=== PATIENT | female | born 1990 | race Caucasian/White ===

== ENCOUNTER 2016-07-16 01:39 | Emergency (ER) | payer OTHER ==
[2016-07-16] MEDS ORDERED: 0.9 % SODIUM CHLORIDE 1,000 ML IV ONE (01:42)
[2016-07-16] MEDS ORDERED: ONDANSETRON HCL/PF 4 MG/ 2ML VIAL ONE (01:42)
[2016-07-16] MEDS ORDERED: ONDANSETRON HCL/PF 4 MG/ 2ML VIAL IVP ONE (02:03)
[2016-07-16] MEDS ORDERED: KETOROLAC TROMETHAMINE 30 MG/1ML VIAL IVP ONE (02:03)
[2016-07-16 02:21] LABS: MEAN CORPUSCULAR HEMOGLOBIN 31.4 pg (28.0-34.0)
[2016-07-16] MEDS ORDERED: 0.9 % SODIUM CHLORIDE 1,000 ML IV SCH (02:30)
[2016-07-16 02:31] LABS: eGFR (African) > 60; eGFR (Non-African) > 60
[2016-07-16 02:35] LABS: BASOPHILS % 2 % (0-2); EOSINOPHILS % 1 % (0-7); MONOCYTES % 4 % (0-11); SEGMENTED NEUTROPHILS % 48 % (39-79)
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
--- NOTE | 2016-07-16 04:55 | Diagnostic Imaging Report ---
[facility] [address] [facility].[address] [address] Report Submission Date: Jul 16, 2016 4:16:37 AM CDT Patient Study Name: ROSEANN PHILIPPE Date: Jul 16, 2016 3:40:28 AM CDT Modality Type: CR Gender: F Description: UPPER EXTREMITY : 88 Institution: [facility] Physician: EDEN PIMENTEL ER Right wrist, 3 views. History: Hand pain. Findings: There is a fracture of the 5th metacarpal with anterior displacement and overlapping of the fracture fragments . There is also a fracture of the 4th metacarpal with mild dorsal angulation also present. There is dorsal hand soft tissue swelling. Remaining osseous structures of the wrist are intact . Impression: 1. 4th and 5th metacarpal fractures Electronically signed on Jul 16, 2016 4:16:37 AM CDT by: Pete CHEN
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
[2016-07-16 05:42] LABS: APPEARANCE,URINE CLEAR (CLEAR); COLOR,URINE YELLOW (YELLOW); OCCULT BLOOD,URINE 2+ (NEGATIVE); UROBILINOGEN URINE 0.2 Eu (0.2-1.0)
[2016-07-16 05:43] LABS: AMPHETAMINE NEGATIVE ng/mL (<1000); BARBITURATES NEGATIVE ng/mL (<300); COCAINE NEGATIVE ng/mL (<150); METHAMPHETAMINE NEGATIVE ng/mL (<1000); METHYLENEDIOXYMETHAMPHETAMINE NEGATIVE ng/mL (<500)
[2016-07-16 05:44] LABS: CANNABINOIDS NEGATIVE ng/mL (<50)
[2016-07-16 05:59] VITALS: BP 119/68
== END 2016-07-16 05:40 | disposition short-term general hospital (02) ==
LOC: ED 01:39
DX: S62.91XA Unspecified fracture of right hand, initial encounter for closed fracture (principal)
CPT/HCPCS: 70450; 71250; 72125; 73080; 73110; 73130; 73562; 74176; 80053; 80320; 80377; 81002; 81025; 85025; J1885; J2405; J7030; L3908; 96361; 96374; 96375; 99283; 99284; G0480; G0481; S1016

== ENCOUNTER 2016-08-01 19:26 | Emergency (ER) | payer OTHER ==
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
[2016-08-01 21:48] VITALS: BP 101/72
--- NOTE | 2016-08-02 06:08 | Diagnostic Imaging Report ---
Report Submission Date: Aug 01, 2016 8:06:15 PM CDT Patient ~ Study Name: ROSEANN PHILIPPE ~ Date: Aug 01, 2016 7:46:14 PM CDT ~ Modality Type: CR Gender: F ~ Description: UPPER EXTREMITY : 88 ~ Institution: [facility] Physician: BETSY MARSHALL ~ ~ ~ ~ HISTORY: 25-year-old female with right hand pain and swelling, recent fracture of the fifth metacarpal bone status post fixation surgery. COMPARISON: Radiographs dated 07/16/2016 TECHNIQUE: Three views of the right hand were performed. FINDINGS: There are interval postoperative changes of plate and screw fixation of the fifth metacarpal bone. ~Mildly displaced oblique versus spiral fracture of the right fourth metacarpal proximal shaft re-identified without fixation. No other fractures are identified about the right hand. IMPRESSION: Fractures of the right fourth and fifth metacarpal shafts with interval postoperative changes of plate and screw fixation of the fifth metacarpal bone. ~No new fractures or evidence of hardware complication. ~ Electronically signed on Aug 01, 2016 8:06:15 PM CDT by: Víctor CHEN
== END 2016-08-01 20:19 ==
LOC: ED 19:26
DX: S62.306D Unspecified fracture of fifth metacarpal bone, right hand, subsequent encounter for fracture with routine healing (principal); X58.XXXD Exposure to other specified factors, subsequent encounter; Y93.9 Activity, unspecified; Y99.9 Unspecified external cause status
CPT/HCPCS: 73130; 99283

== ENCOUNTER 2017-05-15 20:11 | Observation (INO) | payer OTHER ==
[2017-05-15] MEDS ORDERED: 0.9 % SODIUM CHLORIDE 1,000 ML IV ONE ×2 (20:29→20:30)
[2017-05-15 21:00] LABS: BASOPHILS % 0.6 (0.0-1.5); EOSINOPHILS % 3.1 % (0.0-6.8); MEAN CORPUSCULAR HEMOGLOBIN 31.4 pg (28.0-34.0); MONOCYTES % 5.2 % (0.0-11.0); NEUTROPHILS # 4.5 # k/uL (1.4-7.7)
[2017-05-15 21:03] LABS: eGFR (African) > 60; eGFR (Non-African) > 60
[2017-05-15] MEDS ORDERED: ONDANSETRON HCL/PF 4 MG/ 2ML VIAL IVP ONE (21:40)
[2017-05-15] MEDS ORDERED: ONDANSETRON HCL/PF 4 MG/ 2ML VIAL ONE (21:41)
[2017-05-15] MEDS: 0.9 % SODIUM CHLORIDE 1,000 ML IV SCH (21:55)
--- NOTE | 2017-05-15 21:57 | ED Physician Documentation ---
Abdominal Pain - HISTORIAN Historian: patient - HPI Stated Complaint: tylenol OD/toothache Chief Complaint: Dental Pain Additonal Information: pt has several bad teeth she has been taking 9-12 gm tylenol for past 3 days for dental pain tooth no 1-today she took sig less and has has had gi upset and emesis. her acetaminophen level is not elevated but will monitor her closely next several hrs. she has chronic gi upset w/nausea and diarrhea w/most foods. she is not under wt at 135# ht= 5'8". poison control has been consulted, and protocol will be followed Onset: days ago (dental pain and tylenol admis std fri last-3d ago) Duration: other (dental pain has subsided for now and pt requests diet) Context: denies: out of country travel Severity: moderate Quality: other (potential over dose is consideration) Associated Symptoms: nausea, other (ulq abd pain but some in urq and hepatgic punch is pos) Relieved by: remaining still - ROS CONST: other (as described above) GI/: other (chronic gi condition) CVS/RESP: none EYES/ENT: none MS/SKIN/LYMPH: none NEURO/PSYCH: none - SOCIAL HX Smoking History: cigarettes Alcohol Use: none Drug Use: marijuana (as appetite stimulant) - FAMILY HX Family History: no significant history - PAST HX Past History: other (chronic gastritis and gi problems-etiology uncertain-eval std few yrsago but pt bacame and eval held.) Other History: other (gerd and gastritis plus multi dental caries and fx teeth) Surgeries/Procedures: cholecystectomy Home Medications: Ambulatory Orders Medication Instructions Recorded NK [NK] 07/06/16 Allergies/Adverse Reactions: Allergies Allergy/AdvReac Type Severity Reaction Status Date / Time ciprofloxacin [From Cipro] Allergy Unknown Rash Verified 05/16/17 00:24 ciprofloxacin HCl Allergy Unknown Rash Verified 05/16/17 00:24 [From Cipro] doxycycline Allergy Unknown Eye Itching Verified 05/16/17 00:24 erythromycin base Allergy Unknown Unknown Verified 05/16/17 00:24 [From E-Mycin] NSAIDS (Non-Steroidal Allergy Unknown Nonspecific Verified 05/16/17 00:24 Anti-Inflamma aspirin Allergy Anaphylaxis Verified 05/16/17 00:24 ibuprofen Allergy Anaphylaxis Verified 05/16/17 00:24 Penicillins Allergy Rash Verified 05/16/17 00:24 Sulfa (Sulfonamide Allergy Rash Verified 05/16/17 00:24 Antibiotics) [Sulfa(Sulfonamide Antibiotics)] azithromycin [From Zithromax] AdvReac Unknown Diarrhea Verified 05/16/17 00:24 famotidine [From Pepcid] AdvReac Unknown Intolerance Verified 05/16/17 00:24 omeprazole [From Prilosec] AdvReac Unknown Intolerance Verified 05/16/17 00:24 omeprazole magnesium AdvReac Unknown Intolerance Verified 05/16/17 00:24 [From Prilosec] - VITAL SIGNS Vital Signs: Vital Signs Temp Pulse Resp BP Pulse Ox 97.1 F L 60 18 108/70 94 05/16/17 06:00 05/16/17 06:00 05/16/17 06:00 05/16/17 06:00 05/16/17 06:00 - REVIEWED ASSESSMENTS Nursing Assessment Reviewed: Yes Vitals Reviewed: Yes ED Results Lab/Radiology - Lab Results Lab Results: Lab Results 05/15/17 05/15/17 05/15/17 20:46 20:46 20:46 WBC 6.80 K/ul K/ul (4.00-12.00) RBC 4.27 M/ul M/ul (3.90-5.20) Hgb 13.4 g/dL g/dL (12.0-16.0) Hct 39.7 % % (34.5-46.5) MCV 93.0 fl fl (80.0-100.0) MCH 31.4 pg pg (28.0-34.0) MCHC 33.7 g/dL g/dL (30.0-36.0) RDW 12.5 % % (11.3-14.3) Plt Count 167 K/mm3 K/mm3 (130-400) Neut % (Auto) 65.3 % % (39.0-79.0) Lymph % (Auto) 24.7 % % (16.0-50.0) [place] % (Auto) 5.2 % % (0.0-11.0) Eos % (Auto) 3.1 % % (0.0-6.8) Baso % (Auto) 0.6 (0.0-1.5) Neut # (Auto) 4.5 # k/uL # k/uL (1.4-7.7) Lymph # (Auto) 1.7 # k/uL # k/uL (0.6-4.0) [place] # (Auto) 0.4 # k/uL # k/uL (0.0-0.9) Eos # (Auto) 0.2 # k/uL # k/uL (0.0-0.6) Baso # (Auto) 0.0 # k/uL # k/uL (0.0-0.5) Reactive Lymphs % 1.1 % % (0.0-5.0) Reactive Lymphs # 0.1 # k/uL # k/uL (0.0-0.8) Sodium 141 mmol/L mmol/L (136-145) Potassium 3.5 mmol/L mmol/L (3.5-5.1) Chloride 105 mmol/L mmol/L (98-107) Carbon Dioxide 24 mmol/L mmol/L (22-30) BUN 9 mg/dL mg/dL (7-17) Creatinine 0.70 mg/dL mg/dL (0.52-1.04) Estimated Creat Clear 137 Est GFR ( Amer) > 60 (60 - ) Est GFR (Non-Af Amer) > 60 (60 - ) Glucose 90 mg/dL mg/dL (74-106) Calcium 9.1 mg/dL mg/dL (8.4-10.2) Total Bilirubin 0.4 mg/dL mg/dL (0.2-1.3) AST 18 U/L U/L (15-46) ALT 24 U/L U/L (13-69) Alkaline Phosphatase 50 U/L U/L (38-126) Total Protein 7.1 g/dL g/dL (6.3-8.2) Albumin 3.9 g/dL g/dL (3.5-5.0) Urine Color Urine Appearance Urine pH Ur Specific Marshall Urine Protein Urine Ketones Urine Occult Blood Urine Nitrite Urine Bilirubin Urine Urobilinogen Ur Leukocyte Esterase Urine Glucose Acetaminophen < 10.0 ug/mL L ug/mL (10-30) 05/15/17 20:45 WBC RBC Hgb Hct MCV MCH MCHC RDW Plt Count Neut % (Auto) Lymph % (Auto) [place] % (Auto) Eos % (Auto) Baso % (Auto) Neut # (Auto) Lymph # (Auto) [place] # (Auto) Eos # (Auto) Baso # (Auto) Reactive Lymphs % Reactive Lymphs # Sodium Potassium Chloride Carbon Dioxide BUN Creatinine Estimated Creat Clear Est GFR ( Amer) Est GFR (Non-Af Amer) Glucose Calcium Total Bilirubin AST ALT Alkaline Phosphatase Total Protein Albumin Urine Color Yellow (YELLOW) Urine Appearance Clear (CLEAR) Urine pH 6.5 (5.0 - 8.0) Ur Specific Marshall 1.020 (1.010-1.030) Urine Protein Negative mg/dL mg/dL (NEGATIVE) Urine Ketones 1+ mg/dL H mg/dL (NEGATIVE) Urine Occult Blood Trace-intact H (NEGATIVE) Urine Nitrite Negative (NEGATIVE) Urine Bilirubin Negative (NEGATIVE) Urine Urobilinogen 0.2 Eu Eu (0.2-1.0) Ur Leukocyte Esterase Negative (NEGATIVE) Urine Glucose Negative mg/dL mg/dL (NEGATIVE) Acetaminophen - Orders Orders: ED Orders Category Date Time Status Continuous EKG monitoring Q2 Care 05/15/17 20:[address] IV Lock 1T Care 05/15/17 20:41 Active ACETAMINOPHEN LEVEL Routine Lab 05/16/17 02:00 Completed ACETAMINOPHEN LEVEL Stat Lab 05/15/17 20:46 Completed CBC/PLATELET/DIFF Routine Lab 05/15/17 20:46 Completed CMP Routine Lab 05/15/17 20:46 Completed UA MACRO DIP ONLY Routine Lab 05/15/17 20:45 Completed 0.9 % Sodium Chloride [Normal Saline] 1,000 ml Med 05/15/17 20:29 Discontinued IV .STK-MED 0.9 % Sodium Chloride [Normal Saline] 1,000 ml Med 05/15/17 20:30 Discontinued IV Q1H 0.9 % Sodium Chloride [Normal Saline] 1,000 ml Med 05/15/17 22:00 Ordered IV Q8H Ondansetron HCl/Pf [Zofran 4 mg/2 ml] Med 05/15/17 21:41 Discontinued 4 mg .ROUTE .STK-MED ONE Ondansetron HCl/Pf [Zofran 4 mg/2 ml] Med 05/15/17 21:40 Discontinued 4 mg IVP NOW ONE Abdominal Pain Physical Exam - Physical Exam General Appearance: mild distress EENT: eye inspection normal, other. No: pharyngeal erythema NECK: normal inspection. No: carotid bruit RESPIRATORY: no resp distress, chest non-tender, breath sounds normal CVS: reg rate & rhythm, heart sounds normal ABDOMEN: soft, tenderness (ulq and urq-no guarding) SKIN: warm/dry, normal color. No: cyanosis, diaphoresis, jaundice NEURO: oriented X3, motor nml, sensation nml, mood/affect nml, cognition normal Vital Signs: Vital Signs Temp Pulse Resp BP Pulse Ox 97.1 F L 60 18 108/70 94 05/16/17 06:00 05/16/17 06:00 05/16/17 06:00 05/16/17 06:00 05/16/17 06:00 Discharge Clincal Impression: Pain, dental, possible acetaminophen toxicity Disposition: ADMITTED INPATIENT Decision to Admit: [id number] Decision Time: 22:30
[2017-05-15 23:27] VITALS: BMI 21.7
[2017-05-16] MEDS ORDERED: traMADol HCL 50 MG TABLET PO PRN (01:59)
[2017-05-16 02:21] LABS: eGFR (African) > 60; eGFR (Non-African) > 60
[2017-05-16] MEDS: 0.9 % SODIUM CHLORIDE 1,000 ML IV SCH ×2 (05:45→07:55)
[2017-05-16 05:57] LABS: APPEARANCE,URINE CLEAR (CLEAR); COLOR,URINE YELLOW (YELLOW); OCCULT BLOOD,URINE TRACE-INTACT (NEGATIVE); PH URINE 6.5 (5.0 - 8.0); UROBILINOGEN URINE 0.2 Eu (0.2-1.0)
[2017-05-16 08:09] LABS: eGFR (African) > 60; eGFR (Non-African) > 60
--- NOTE | 2017-05-16 08:33 | Discharge Summary ---
Discharge Summary - Discharge Sumary History of Present Illness: Pt is a 26 yo female admitted through the ER after stating that she had been taking excessive amounts of Tylenol, up to 12 gms/day, for a tooth ache. Pt was admitted for serial Acetaminophen levels, which remained low. Pt also did not have any elevation in her LFT's, so that Acetaminophen toxicity was ruled out. Pt states now that she vomited after taking the Tylenol, so that it may not have entered her system. Pt was counseled on the dangers of taking more than 3 or 4 gms Tylenol/24 hrs. Pt was d/c'd with rx for Keflex and Tramadol for toothache. Pt states that she is not allergic to Keflex, even though this was mistakenly reported in one of her records. She has taken Keflex in the past. Condition at Discharge: Stable Home Medications: Ambulatory Orders Medication Instructions Recorded NK [NK] 07/06/16 Consultations this Visit: None Procedures this Visit: None Allergies/Adverse Reactions: Allergies Allergy/AdvReac Type Severity Reaction Status Date / Time ciprofloxacin [From Cipro] Allergy Unknown Rash Verified 05/16/17 00:24 ciprofloxacin HCl Allergy Unknown Rash Verified 05/16/17 00:24 [From Cipro] doxycycline Allergy Unknown Eye Itching Verified 05/16/17 00:24 erythromycin base Allergy Unknown Unknown Verified 05/16/17 00:24 [From E-Mycin] NSAIDS (Non-Steroidal Allergy Unknown Nonspecific Verified 05/16/17 00:24 Anti-Inflamma aspirin Allergy Anaphylaxis Verified 05/16/17 00:24 ibuprofen Allergy Anaphylaxis Verified 05/16/17 00:24 Penicillins Allergy Rash Verified 05/16/17 00:24 Sulfa (Sulfonamide Allergy Rash Verified 05/16/17 00:24 Antibiotics) [Sulfa(Sulfonamide Antibiotics)] azithromycin [From Zithromax] AdvReac Unknown Diarrhea Verified 05/16/17 00:24 famotidine [From Pepcid] AdvReac Unknown Intolerance Verified 05/16/17 00:24 omeprazole [From Prilosec] AdvReac Unknown Intolerance Verified 05/16/17 00:24 omeprazole magnesium AdvReac Unknown Intolerance Verified 05/16/17 00:24 [From Prilosec]
[2017-05-16 09:26] VITALS: BP 97/47
== END 2017-05-16 10:15 | disposition home or self-care (01) ==
LOC: ED 20:11 → SOUTH 22:37
PROVIDERS: ADMIT Family Medicine; ATTEND Family Medicine
DX: K08.89 Other specified disorders of teeth and supporting structures (principal)
CPT/HCPCS: 36415; 80053; 81002; 85025; 96365; 96375; 99283; G0378; J2405; J7030; 99218; S1016

== ENCOUNTER 2017-11-03 18:20 | Emergency (ER) | payer OTHER ==
--- NOTE | 2017-11-03 18:39 | ED Physician Documentation ---
General Adult - HISTORIAN Historian: patient - HPI Stated Complaint: knot in armpit Chief Complaint: General Adult Additional Information: Alger bump right axilla for 4 days. Painful. No treatment attempted. Temp 100.2 last evening. No other associated signs. Most recent right hand surgery a month ago. Completed antibiotics (Augmentin, she thinks) 3 weeks ago. - ROS CONST: denies: fever - PAST HX Past History: other (fracture and suergeries right hand) Allergies/Adverse Reactions: Allergies Allergy/AdvReac Type Severity Reaction Status Date / Time ciprofloxacin [From Cipro] Allergy Unknown Rash Verified 05/16/17 00:24 ciprofloxacin HCl Allergy Unknown Rash Verified 05/16/17 00:24 [From Cipro] doxycycline Allergy Unknown Eye Itching Verified 05/16/17 00:24 erythromycin base Allergy Unknown Unknown Verified 05/16/17 00:24 [From E-Mycin] NSAIDS (Non-Steroidal Allergy Unknown Nonspecific Verified 05/16/17 00:24 Anti-Inflamma aspirin Allergy Anaphylaxis Verified 05/16/17 00:24 ibuprofen Allergy Anaphylaxis Verified 05/16/17 00:24 Penicillins Allergy Rash Verified 05/16/17 00:24 Sulfa (Sulfonamide Allergy Rash Verified 05/16/17 00:24 Antibiotics) [Sulfa(Sulfonamide Antibiotics)] azithromycin [From Zithromax] AdvReac Unknown Diarrhea Verified 05/16/17 00:24 famotidine [From Pepcid] AdvReac Unknown Intolerance Verified 05/16/17 00:24 omeprazole [From Prilosec] AdvReac Unknown Intolerance Verified 05/16/17 00:24 omeprazole magnesium AdvReac Unknown Intolerance Verified 05/16/17 00:24 [From Prilosec] Home Medications: Ambulatory Orders Medication Instructions Recorded NK [NK] 07/06/16 - SOCIAL HX Smoking History: non-smoker - FAMILY HX Family History: No - VITAL SIGNS Vital Signs: Vital Signs Temp Pulse Resp BP Pulse Ox 97/47 05/16/17 09:26 - REVIEWED ASSESSMENTS Nursing Assessment Reviewed: Yes Vitals Reviewed: Yes General Adult Physical Exam - PHYSICAL EXAM GENERAL APPEARANCE: mild distress EENT: eye inspection normal, ENT inspection normal NECK: normal inspection, supple RESPIRATORY: no resp distress BACK: normal inspection SKIN: warm/dry, normal color, other (1 cm diamete pink papule central right axilla. Tender to touch.) EXTREMITIES: normal range of motion (gait and stance) NEURO: CN's nml as tested, motor nml, sensation nml Discharge Clincal Impression: Folliculitis Referrals: Yusuf Springer MD [Primary Care Provider] - 2 Days Condition: Good Disposition: 01 HOME, SELF-CARE Decision to Admit: NO Decision Time: 18:40
[2017-11-03 18:50] VITALS: BP 104/62
== END 2017-11-03 18:48 | disposition home or self-care (01) ==
LOC: ED 18:20
DX: L66.4 Folliculitis ulerythematosa reticulata (principal)
CPT/HCPCS: 99282

== ENCOUNTER 2017-11-20 21:27 | Emergency (ER) | payer OTHER ==
[2017-11-20] MEDS ORDERED: MAG HYDROX/ALUMINUM HYD/SIMETH 30 ML, Lidocaine 2%Visc 15ml 20 MG, PHENobarb/HYOSCY/ATR... PO ONE ×3 (22:06)
[2017-11-20] MEDS ORDERED: 0.9 % SODIUM CHLORIDE 1,000 ML IV ONE (22:07)
[2017-11-20] MEDS ORDERED: FAMOTIDINE/PF 20 MG/2 ML VIAL IVP ONE (22:08)
--- NOTE | 2017-11-20 22:12 | ED Physician Documentation ---
General Adult - HISTORIAN Historian: patient - HPI Stated Complaint: "I have gastritis". Chief Complaint: General Adult Onset: days ago (7) Timing: still present Severity: moderate Further Comments: yes (Pt is a 27 yo female with abd pain and diarrhea that has been going on for a week. Pt states pain occurs whenever she eats. No blood with bm. Pt has had lightheadedness. No fever. Pt has had episodes of heartburn in the past.) - ROS CONST: no problems EYES/ENT: none CVS/RESP: none GI/: abdominal pain, nausea, diarrhea - PAST HX Past History: other (cholecystectomy) Surgeries/Procedures: cholecystectomy Allergies/Adverse Reactions: Allergies Allergy/AdvReac Type Severity Reaction Status Date / Time ciprofloxacin [From Cipro] Allergy Unknown Rash Verified 11/03/17 18:44 ciprofloxacin HCl Allergy Unknown Rash Verified 11/03/17 18:44 [From Cipro] doxycycline Allergy Unknown Eye Itching Verified 11/03/17 18:44 erythromycin base Allergy Unknown Unknown Verified 11/03/17 18:44 [From E-Mycin] NSAIDS (Non-Steroidal Allergy Unknown Nonspecific Verified 11/03/17 18:44 Anti-Inflamma aspirin Allergy Anaphylaxis Verified 11/03/17 18:44 ibuprofen Allergy Anaphylaxis Verified 11/03/17 18:44 Penicillins Allergy Rash Verified 11/03/17 18:44 Sulfa (Sulfonamide Allergy Rash Verified 11/03/17 18:44 Antibiotics) [Sulfa(Sulfonamide Antibiotics)] azithromycin [From Zithromax] AdvReac Unknown Diarrhea Verified 11/03/17 18:44 famotidine [From Pepcid] AdvReac Unknown Intolerance Verified 11/03/17 18:44 omeprazole [From Prilosec] AdvReac Unknown Intolerance Verified 11/03/17 18:44 omeprazole magnesium AdvReac Unknown Intolerance Verified 11/03/17 18:44 [From Prilosec] Home Medications: Ambulatory Orders Medication Instructions Recorded NK [NK] 11/20/17 - SOCIAL HX Smoking History: non-smoker - FAMILY HX Family History: Yes - VITAL SIGNS Vital Signs: Vital Signs Temp Pulse Resp BP Pulse Ox 99.1 F 16 136/82 99 11/20/17 21:42 11/20/17 21:42 11/20/17 21:42 11/20/17 21:42 - REVIEWED ASSESSMENTS Nursing Assessment Reviewed: Yes Vitals Reviewed: Yes Progress - Progress Progress: abd x-ray: Increased small bowel gas but without small bowel distention. This is a nonspecific finding. NS 1 L IVF Zofran 4 mg IV Famotidine 20 mg IV GI cocktail mild improvement H. Pylori - pending. May try OTC pepcid/zantac or Prilosec. f/u pcp ED Results Lab/Radiology - Orders Orders: ED Orders Category Date Time Status Place IV Lock 1T Care 11/20/17 22:07 Active CBC/PLATELET/DIFF Routine Lab 11/20/17 Ordered CMP Routine Lab 11/20/17 22:09 Ordered LIPASE Stat Lab 11/20/17 22:09 Ordered URINALYSIS Routine Lab 11/20/17 Ordered URINE HCG Stat Lab 11/20/17 Ordered 0.9 % Sodium Chloride [Normal Saline] 1,000 ml Med 11/20/17 22:07 Active IV Q1H Famotidine/Pf [Pepcid] Med 11/20/17 22:08 Discontinued 20 mg IVP NOW ONE Mag Hydrox/Aluminum Hyd/Simeth [Mylanta] 30 ml Med 11/20/17 22:06 Discontinued Lidocaine 2%Visc 15ml [Xylocaine] 20 mg PHENobarb/HYOSCY/ATROPINE/SCOP [] 10 ml PO NOW General Adult Physical Exam - PHYSICAL EXAM GENERAL APPEARANCE: mild distress EENT: pharynx normal NECK: normal inspection, supple RESPIRATORY: no resp distress, chest non-tender, breath sounds normal CVS: reg rate & rhythm, heart sounds normal ABDOMEN: soft, tenderness (epigastric), decreased BS BACK: normal inspection, no CVA tenderness SKIN: warm/dry, normal color EXTREMITIES: non-tender, normal range of motion, no evidence of injury NEURO: oriented X3, motor nml, sensation nml Discharge Clincal Impression: abd pain, ? peptic ulcer dz, ? GERD Referrals: Yusuf Springer MD [Primary Care Provider] - Condition: Stable Disposition: 01 HOME, SELF-CARE Decision to Admit: NO Decision Time: 00:18
[2017-11-20] MEDS ORDERED: MAG HYDROX/ALUMINUM HYD/SIMETH 30 ML UDC PO ONE (22:24)
[2017-11-20] MEDS ORDERED: Lidocaine 2%Visc 15ml 20 MG/ML UDC ONE (22:24)
[2017-11-20 22:31] LABS: BASOPHILS % 0.6 (0.0-1.5); EOSINOPHILS % 3.6 % (0.0-6.8); MEAN CORPUSCULAR HEMOGLOBIN 31.9 pg (28.0-34.0); MEAN CORPUSCULAR VOLUME 96.1 fl (80.0-100.0); NEUTROPHILS # 3.6 # k/uL (1.4-7.7)
[2017-11-20 22:45] LABS: eGFR (African) > 60; eGFR (Non-African) > 60
[2017-11-21 01:23] VITALS: BP 116/80
[2017-11-21 06:19] LABS: APPEARANCE,URINE CLEAR (CLEAR); COLOR,URINE YELLOW (YELLOW); OCCULT BLOOD,URINE NEGATIVE (NEGATIVE); PH URINE 5.5 (5.0 - 8.0); UROBILINOGEN URINE 0.2 Eu (0.2-1.0)
--- NOTE | 2017-11-21 06:38 | Diagnostic Imaging Report ---
ANDREE HAYES [facility] [address] [facility] [address] [address] Report Submission Date: Nov 20, 2017 11:35:46 PM CDT Patient Study Name: ROSEANN RIZO Date: Nov 20, 2017 11:13:57 PM CDT Modality Type: DX Gender: F Description: ABDOMEN : 88 Institution: [facility] Physician: ANDREE HAYES One view abdomen Clinical history: Epigastric abdominal pain. Findings: Examination abdomen single AP view demonstrates gas and stool throughout the colon. There is gas in some nondistended small-bowel loops. Surgical clips are seen the right upper quadrant from prior cholecystectomy. Visualized bony structures are intact. Impression: 1. Postoperative abdomen. 2. Increased small bowel gas but without small bowel distention. This is a nonspecific finding. Electronically signed on Nov 20, 2017 11:35:46 PM CDT by: Angel CHEN
== END 2017-11-21 00:25 | disposition home or self-care (01) ==
LOC: ED 21:27
DX: R10.9 Unspecified abdominal pain (principal)
CPT/HCPCS: 74018; 80053; 81002; 81025; 83690; 85025; 86677; A9270; J7030; 96365; 96375; 99284; S0028; S1016

== ENCOUNTER 2018-11-12 16:32 | Emergency (ER) | payer OTHER ==
[2018-11-12] MEDS ORDERED: CEPHALEXIN 250 MG CAPSULE PO ONE (16:46)
--- NOTE | 2018-11-12 16:49 | ED Physician Documentation ---
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 She states that her tooth on the right side; lower bottom; in the back started to hurt 2 days ago. Onset: days ago Context: Fractured Tooth, Dental Caries Associated Symptoms: denies: fever, chills, sore throat Worsened By: cold. denies: heat - ROS CONST: no problems CVS/RESP: none GI/: denies: nausea, vomiting MS/SKIN/LYMPH: denies: rash NEURO/PSYCH: none - PAST HX Past History: gum disease Other History: none Immunizations: UTD Allergies/Adverse Reactions: Allergies Allergy/AdvReac Type Severity Reaction Status Date / Time ciprofloxacin [From Cipro] Allergy Unknown Rash Verified 11/21/17 00:28 ciprofloxacin HCl Allergy Unknown Rash Verified 11/21/17 00:28 [From Cipro] doxycycline Allergy Unknown Eye Itching Verified 11/21/17 00:28 erythromycin base Allergy Unknown Unknown Verified 11/21/17 00:28 [From E-Mycin] NSAIDS (Non-Steroidal Allergy Unknown Nonspecific Verified 11/21/17 00:28 Anti-Inflamma aspirin Allergy Anaphylaxis Verified 11/21/17 00:28 ibuprofen Allergy Anaphylaxis Verified 11/21/17 00:28 Penicillins Allergy Rash Verified 11/21/17 00:28 Sulfa (Sulfonamide Allergy Rash Verified 11/21/17 00:28 Antibiotics) [Sulfa(Sulfonamide Antibiotics)] azithromycin [From Zithromax] AdvReac Unknown Diarrhea Verified 11/21/17 00:28 famotidine [From Pepcid] AdvReac Unknown Intolerance Verified 11/21/17 00:28 omeprazole [From Prilosec] AdvReac Unknown Intolerance Verified 11/21/17 00:28 omeprazole magnesium AdvReac Unknown Intolerance Verified 11/21/17 00:28 [From Prilosec] Home Medications: Ambulatory Orders Medication Instructions Recorded Cephalexin [Keflex] 500 mg PO Q6H #40 capsule 11/12/18 - SOCIAL HX Smoking History: greater than 1 pack/day Alcohol Use: rarely Drug Use: methamphetamines - FAMILY HX Family History: No - VITAL SIGNS Vital Signs: Vital Signs Temp Pulse Resp BP Pulse Ox 116/80 11/21/17 00:00 - REVIEWED ASSESSMENTS Nursing Assessment Reviewed: Yes Vitals Reviewed: Yes ED Results Lab/Radiology - Orders Orders: ED Orders Category Date Time Status Cephalexin [Keflex] Med 11/12/18 16:46 Discontinued 1,000 mg PO NOW ONE Dental Pain Physical Exam - EXAM General Appearance: no acute distress, alert Head/Neck: head nml inspection, trachea midline, no lymphadenopathy Eyes: eyes nml inspection, PERRL Mouth/Throat: lips nml, gums nml, pharynx nml, voice nml, membranes nml Ear/Nose: nml inspection Respiratory: breath sounds nml CVS: heart sounds nml Abdomen: normal bowel sounds Extremities: non-tender Skin: warm/dry Neuro/Psych: none Discharge Clincal Impression: Pain due to dental caries Prescriptions: Cephalexin [Keflex] 500 mg PO Q6H #40 capsule Referrals: Yusuf Springer MD [Primary Care Provider] - 2 Days Additional Instructions: Take Cephalexin 500mg by mouth every 6 hours x 10 days Warm salt water gargles Patient has Tramadol at home Use Tylenol as needed for pain, with Anbesol, Orajel See dentist AVEL Condition: Good Disposition: 01 HOME, SELF-CARE Decision to Admit: NO Decision Time: 20:20
[2018-11-12 16:54] VITALS: BP 120/77
== END 2018-11-12 16:54 | disposition home or self-care (01) ==
LOC: ED 16:32
DX: K02.9 Dental caries, unspecified (principal)
CPT/HCPCS: 99283

== ENCOUNTER 2019-02-27 11:10 | Emergency (ER) | payer OTHER ==
--- NOTE | 2019-02-27 11:19 | ED Physician Documentation ---
Chest Pain - HISTORIAN Historian: patient - HPI Stated Complaint: chest pain x 3 days Chief Complaint: Chest Pain Onset: days ago (3) Timing: sudden onset Duration: constant Last known Well Date: 02/23/19 Last Known Well Time: 09:00 Context: activity Severity: moderate Quality: sharp, stabbing Chest Pain Radiation: no radiation Chest Pain Signs/Symptoms: other (she states she "passed out" due to sharp pain (vague on when last night or this am) ). denies: nausea, vomiting Worsened By: movement, change in position Relieved By: nothing Further Comments: yes (She states she has had this issue in the past - her story is hard to follow she is on one topic then moves to another. She starts with saying she had this issue before her last where she got a low pulse rate and "passed out" she states she is fearful this is "happening again" . She then moves to the fact her son who is six has heart issues. Next discussion she reports this all really started about one week ago when she had some weakness and "passed out" She went to the "clinic" where she states she was "hooked up to that heart machine" and she was told she was "ok" she states the chest pain increased to severe in last day or "so" and she has pain (screaming when asked) "under my left tit" she denies any injury. Denies any shortness of air. She has not had any OTC meds for the pain. Denies any daily meds) - ROS CONST: none MS/LYMPH: none GI/: none EYES/ENT: none SKIN/ENDO: none NEURO/PSYCH: none - PAST HX SD risk factors: hypertension (she was not given any meds ) DVT/PE Risk Factors: none TAD/AAA risk factors: none Neuro deficit: none GI disease: none Lung disease: none Allergies/Adverse Reactions: Allergies Allergy/AdvReac Type Severity Reaction Status Date / Time ciprofloxacin HCl Allergy Unknown Rash Verified 02/27/19 11:49 [From Cipro] doxycycline Allergy Unknown Eye Itching Verified 02/27/19 11:49 erythromycin base Allergy Unknown Unknown Verified 02/27/19 11:49 [From E-Mycin] NSAIDS (Non-Steroidal Allergy Unknown Nonspecific Verified 02/27/19 11:49 Anti-Inflamma aspirin Allergy Anaphylaxis Verified 02/27/19 11:49 ibuprofen Allergy Anaphylaxis Verified 02/27/19 11:49 Penicillins Allergy Rash Verified 02/27/19 11:49 Sulfa (Sulfonamide Allergy Rash Verified 02/27/19 11:49 Antibiotics) [Sulfa(Sulfonamide Antibiotics)] azithromycin [From Zithromax] AdvReac Unknown Diarrhea Verified 02/27/19 11:49 omeprazole magnesium AdvReac Unknown Intolerance Verified 02/27/19 11:49 [From Prilosec] Home Medications: Ambulatory Orders Medication Instructions Recorded NK 02/27/19 - SOCIAL HX Smoking History: cigarettes Alcohol Use: occasionally Drug Use: marijuana - FAMILY HX Family HX: none - VITAL SIGNS Vital Signs: Vital Signs Temp Pulse Resp BP Pulse Ox 120/77 11/12/18 16:32 - REVIEWED ASSESSMENTS Nursing Assessment Reviewed: Yes Vitals Reviewed: Yes Progress - Progress Progress: 1245: states pain is now 3/10 and she is resting quietly DG Chest Pain Physical Exam - EXAM General Appearance: moderate distress EENT: eye inspection normal, no signs of dehydration Neck: nml inspection Respiratory: no resp. distress, nml breath sounds, other (left chest under breast is painful to touch. No obvious injury ) CVS: reg. rate & rhythm, no murmur Abdomen: soft, normal bowel sounds, no distension Skin: warm/dry, normal color Extremities: non-tender, normal range of motion, no evidence of injury, no edema Neuro: oriented X3 Discharge Clincal Impression: Chest pain, non-cardiac Referrals: Yusuf Springer MD [Primary Care Provider] - 2 Days Comments: 1. Follow up with PCP in 2-4 days 2. Return to ER for any increased concerns Condition: Stable Disposition: 01 HOME, SELF-CARE Decision to Admit: NO Date of Decison to Admit: 02/27/19 Decision Time: 13:24
[2019-02-27] MEDS: ASPIRIN 81 MG CHEW TAB PO ONE (11:37)
[2019-02-27 11:38] LABS: BASOPHILS % 0.4 % (0.0-1.5); NEUTROPHILS # 3.6 # k/uL (1.4-7.7)
[2019-02-27] MEDS: 0.9 % SODIUM CHLORIDE 1,000 ML IV ONE ×2 (11:38→12:45)
[2019-02-27 11:52] LABS: eGFR (Non-African) > 60
--- NOTE | 2019-02-27 12:16 | Diagnostic Imaging Report ---
PATIENT MR#: [id number] PATIENT PATIENT NAME: ROSEANN RIZO DATE OF : 1990 REFERRING PHYSICIAN: Marie Hussein EXAM DATE: 02/27/2019 ACCESSION NUMBER: [id number] EXAM DESCRIPTION: CHEST 1VIEW Portable chest AP CLINICAL INDICATION: CHEST PAIN STARTING TODAY (Hx) / --- Note time : 02/27/2019 11:50:44 AM User : Radha Tamayo CHEST PAIN STARTING TODAY (DICOM Hx) (DICOM Hx) FINDINGS: Two views of the chest were obtained. The lungs are well expanded. No confluent infiltrate, consolidation, or effusion is present. The hear t and mediastinal silhouettes are normal. IMPRESSION: No acute cardiopulmonary disease. Read by: Dr. Fernando Almanza Transcribed by: Transcribed Date: Electronically signed by: Dr. Fernando Almanza Date signed: 02/27/2019 12:16:17 PM
--- NOTE | 2019-02-27 13:19 | Diagnostic Imaging Report ---
PATIENT MR#: [id number] PATIENT PATIENT NAME: ROSEANN RIZO DATE OF : 1990 REFERRING PHYSICIAN: Marie Hussein EXAM DATE: 02/27/2019 ACCESSION NUMBER: [id number] EXAM DESCRIPTION: CT PE CHEST CT CHEST WITH CONTRAST CT 3-D RECONSTRUCTED IMAGES ON INDEPENDENT WORKSTATION Note time : 02/27/2019 12:44:38 PM User : Ana campos CHEST PAIN STARTING TODAY (DICOM Hx) (DICOM Hx) TECHNIQUE: 2.0 mm axial images through the thorax via routine PE protocol. 3-D reconstructed images w ere obtained in the usual fashion. COMPARISON: FINDINGS: The lung field are clear. There is no consolidation, effusion, or pneumothorax. No mediastinal, hilar , or axillary lymphadenopathy is present. The right and left main pulmonary arteries, bilateral lobar, and visualized segmental and subsegmenta l branches are well opacified. No focal filling defects to suggest pulmonary emboli are present. The thoracic aorta is unremarkable. 3-D reconstructed images confirm the above findings. IMPRESSION: 1. No evidence for pulmonary emboli Read by: Dr. Fernando Almanza Transcribed by: Transcribed Date: Electronically signed by: Dr. Fernando Almanza Date signed: 02/27/2019 1:19:17 PM
[2019-02-27 13:39] VITALS: BP 102/63
[2019-02-27 14:46] LABS: CANNABINOIDS NON NEGATIVE ng/mL (< 50); METHYLENEDIOXYMETHAMPHETAMINE NEGATIVE ng/mL (<500)
[2019-02-27 14:46] LABS: APPEARANCE,URINE CLEAR (CLEAR); COLOR,URINE YELLOW (YELLOW); OCCULT BLOOD,URINE NEGATIVE (NEGATIVE); PH URINE 6.5 (5.0 - 8.0); URINE HCG NEGATIVE (NEGATIVE); UROBILINOGEN URINE 0.2 Eu (0.2-1.0)
== END 2019-02-27 13:36 | disposition home or self-care (01) ==
LOC: ED 11:10
DX: R07.89 Other chest pain (principal)
CPT/HCPCS: 71045; 71275; 80053; 80377; 81002; 81025; 83880; 84484; 85025; 85379; 93005; 96360; 96361; 99282; 99284; G0481; J7030; Q9967; S1016